=== PATIENT | male | born 1945 | race Caucasian/White ===

== ENCOUNTER 2024-12-18 16:43 | Emergency (ER) | payer MEDICARE ==
[~2024-12-18] VITALS: Ht 175.3 cm; Wt 72.6 kg
--- NOTE | 2024-12-18 17:51 | ERN ---
General Chief Complaint: Abdominal Pain Stated Complaint: POSSIBLE HERNIA RUPTURE Time Seen by MD: 16:43 Source: patient History of Present Illness Initial Comments PATIENT IS A 79-YEAR-OLD GENTLEMAN COMING IN TO BE EVALUATED FOR LOWER ABDOMINAL PAIN. PATIENT STATES THAT HE HAD A UMBILICAL HERNIA REPAIRED MANY YEARS AGO AND YESTERDAY WHILE FORMING SOME PHYSICAL ACTIVITY HE STATES IF HE FELT IF IT POPPED. NO OTHER CURRENT COMPLAINT. Allergies: Coded Allergies: Penicillins (Unverified Allergy, Unknown, 12/18/24) cefuroxime (Unverified Allergy, Unknown, 12/18/24) Past Medical History Past Medical History: Stroke Past Surgical History: Cholecystectomy, Unknown ROS Dictation CONSTITUTIONAL: NO CHILLS, NO FEVER, NO WEAKNESS, NO DIAPHORESIS, NO MALAISE. HEAD/FACE: NO SIGNS OF TRAUMA. EENT: NO EYE PAIN, NO BLURRED VISION, NO TEARING, NO DOUBLE VISION, NO EAR PAIN, NO EAR DISCHARGE, NO NOSE PAIN, NO NASAL CONGESTION, NO THROAT PAIN, NO THROAT SWELLING, NO MOUTH PAIN. RESPIRATORY: NO COUGH, NO ORTHOPNEA, NO SOB, NO STRIDOR, NO WHEEZING. CARDIOVASCULAR: NO CHEST PAIN, NO EDEMA, NO PALPITATIONS, NO SYNCOPE. GASTROINTESTINAL/ABDOMINAL: ABDOMINAL PAIN, NO CONSTIPATION, NO DIARRHEA, NO NAUSEA, NO VOMITING. GENITOURINARY: NO ABNORMAL DISCHARGE, NO DYSURIA, NO FREQUENT URINATION, NO HEMATURIA. NO COMPLAINTS OF PAIN IN THE GENITALS. MUSCULOSKELETAL: NO BACK PAIN, NO GOUT, NO JOINT PAIN, NO JOINT SWELLING, NO MUSCLE PAIN, NO MUSCLE STIFFNESS, NO NECK PAIN. INTEGUMENTARY: NO CHANGE IN COLOR, NO CHANGE IN HAIR/NAILS, NO DRYNESS, NO LESION, NO LUMPS, NO RASH. NEUROLOGICAL/PSYCH: NO ANXIETY, NOT DEPRESSED, NO EMOTIONAL PROBLEM, NO HEADACHE, NO NUMBNESS, NO PRE-EXISTING DEFICIT, NO HISTORY OF SEIZURES, NO TREMORS, NO WEAKNESS. HEMATOLOGIC/LYMPHATIC: NOT ANEMIC, NO HISTORY OF BLOOD CLOTS, NO APPARENT BLEEDING, NO BRUISING, GLANDS NOT SWOLLEN. ALL SYSTEMS NEGATIVE, EXCEPT NOTED. Physical Exam Physical Exam Dictation VITAL SIGNS: REVIEWED. GENERAL APPEARANCE: ALERT, ORIENTED X3, NO ACUTE DISTRESS, OBESE. HEAD AND FACE: NON-TRAUMATIC. EYES: PERRL, PINK CONJUNCTIVAS, EYELID NO TRAUMA, ANTERIOR CHAMBER CLEAR. EARS: PINNAS INTACT AND NO SIGNS OF TRAUMA OR ERYTHEMA. EAR CANALS CLEAR AND NO DISCHARGE. TMS NO ERYTHEMA. NOSE: NO DISCHARGE, NO BLEEDING. OROPHARYNX: MOUTH NORMAL, TEETH NO CARIES, TONGUE PINK. PHARYNX CLEAR, NO ERYTHEMA. TONSILS NO EXUDATES, NO ABSCESSES NOTED. MUCOUS MEMBRANE MOIST. NECK: SUPPLE, NON-TENDER, NO THYROMEGALY, NO MASSES, NO JVD, NO BRUITS. BREAST: DEFERRED. CHEST: NO TENDERNESS, NO CREPITUS, NO PARADOXICAL MOVEMENT, NO RETRACTIONS. LUNGS: CLEAR, WELL-VENTILATED, SYMMETRIC, NO RALES, NO WHEEZING, NO RHONCHI, NO STRIDOR, GOOD BREATH SOUNDS BILATERALLY. HEART: REGULAR RATE, REGULAR RHYTHM, NO MURMUR, NO GALLOPS. VASCULAR: NO PERIPHERAL EDEMA. ABDOMEN: SOFT, POSITIVE BOWEL SOUNDS, NONDISTENDED, NO GUARDING, LOWER ABDOMINAL TENDER, NO REBOUND, NO MASSES NO HEPATOMEGALY, NO SPLENOMEGALY, NO CARLOS'S SIGN, NO HERNIAS. RECTAL: DEFERRED. GENITAL: DEFERRED. NEUROLOGICAL: NORMAL SPEECH, GROSS MOTOR FUNCTION INTACT, GROSS SENSORY FUNCTION INTACT. MUSCULOSKELETAL: NECK NONTENDER, FULL RANGE OF MOTION, BACK NONTENDER, FULL RANGE OF MOTION. EXTREMITIES: NONTENDER, FULL RANGE OF MOTION. SKIN: COLOR PINK, DRY, NO TURGOR, NO RASH, NO LACERATIONS, NO ABRASIONS, NO CONTUSIONS. LYMPHATICS: DEFERRED. Results EKG/XRAY/US/CT/MRI Ultrasound Comment ABDOMINAL ULTRASOUND- ABDOMINAL HERNIA MDM MDM: DIFFERENTIAL DIAGNOSIS: UMBILICAL HERNIA, ABDOMINAL HERNIA, PATIENT IS A 79-YEAR-OLD GENTLEMAN COMING IN TO BE EVALUATED FOR ABDOMINAL DISCOMFORT. PATIENT STATES HE HAD A SURGERY FOR UMBILICAL HERNIA REPAIR MANY YEARS AGO. HE STATES HE HAS BEEN HAVING SOME DISCOMFORT FOR A COUPLE OF DAYS. ULTRASOUND DISCLOSE POSSIBLE HERNIA. ABDOMINAL BINDER IS IN PLACE I ADVISED HIM APPROPRIATE FOLLOW UP WITH PCP AND/OR SURGEON. ED Course Orders Procedure Category Date Status Time Us Abd Limited/Abd US 12/18/24 Taken Wall 17:43 Vital Signs Date Time Temp Pulse Resp B/P (MAP) Pulse Ox O2 Delivery O2 Flow Rate FiO2 12/18/24 17:36 98.1 44 16 119/59 98 Room Air 0 DX & DISP Disposition: Discharge Departure Impression: Primary Impression: Abdominal hernia Condition: Stable Additional Instructions: FOLLOW-UP WITH PRIMARY CARE PROVIDER IN 1 TO 2 DAYS. TAKE MEDICATIONS DIRECTED HERE IN THE EMERGENCY ROOM. OKAY TO CONTINUE HOME MEDICATIONS UNLESS OTHERWISE DISCUSSED DURING YOUR VISIT IN THE EMERGENCY ROOM TODAY. RETURN TO YOUR NEAREST EMERGENCY ROOM IF SYMPTOMS WORSEN OR IF THERE IS NO IMPROVEMENT. CALL 911 IF YOU NEED IMMEDIATE ASSISTANCE. TAKE TYLENOL ELAH-[id number]-[id number] NEEDED AND IF NO CONTRAINDICATIONS ARE PRESENT. INCREASE ORAL HYDRATION. A WOUND CULTURE OR URINE CULTURE WAS ORDERED HERE IN THE EMERGENCY ROOM DEPARTMENT PLEASE FOLLOW-UP WITH PRIMARY CARE PROVIDER AND ADVISE THEM TO GET REPEAT PORTS FROM OUR FACILITY. IF YOU HAD ANY MEDINA WRAP/SPLINTS THAT WERE APPLIED HERE, PLEASE DO NOT REMOVE THEM UNTIL YOU SEE YOUR PRIMARY CARE OR SPECIALTY. REFERRALS: Referrals: NONE (PCP) SUNDAR PERALES MD, LUIS A MD Time of Disposition: 19:12 ADRI YAÑEZ MD Dec 18, 2024 17:51
--- NOTE | 2024-12-18 19:19 | HMCIMG ---
US ABD LIMITED/ABD WALL REASON: lower abd , rule out hernia. COMPARISON: None TECHNIQUE: Abdominal ultrasound study was performed with specific attention given to the region of interest in the periumbilical area. FINDINGS: There is periumbilical hernia with bowel content measuring 2.1 x 1.4 x 1.3 cm. IMPRESSION: Periumbilical hernia with bowel content.
--- NOTE | 2024-12-18 19:49 | NUR ---
ABDOMINAL BINDER APPLIED FOR PATIENT
[2024-12-18 19:50] VITALS: BP 110/58; PULSE 55; RESP 17; TEMP 98.6; O2SAT 97
== END 2024-12-18 20:02 | disposition home or self-care (01) ==
LOC: EDH 16:43
DX: K42.9 Umbilical hernia without obstruction or gangrene (principal); Z88.0 Allergy status to penicillin; Z88.1 Allergy status to other antibiotic agents; Z90.49 Acquired absence of other specified parts of digestive tract
CPT/HCPCS: 76705; 99284